=== PATIENT | male | born 1995 ===

== ENCOUNTER 2016-08-28 01:16 | Emergency (ER) | payer OTHER ==
[2016-08-28 04:19] VITALS: BP 138/91
--- NOTE | 2016-08-28 07:54 | RAD ---
INDICATION: Head injury. COMPARISON: There are no prior studies available for comparison. TECHNIQUE: Contiguous axial sections of the brain were obtained from the skull base to the vertex without contrast. FINDINGS: The ventricles, cisterns and sulci are within normal limits. No significant focal abnormality or mass effect is seen. There is no evidence for hemorrhage. No significant focal osseous abnormality is seen. The visualized portion of the paranasal sinuses and mastoid air cells appear clear. IMPRESSION: NO EVIDENCE FOR ACUTE INTRACRANIAL ABNORMALITY.
--- NOTE | 2016-08-28 07:58 | RAD ---
HISTORY: Fall, shoulder pain left COMPARISONS: None VIEWS: 2, frontal and frontal oblique views of the left clavicle FINDINGS: BONE DENSITY: Normal. BONES: There is a somewhat displaced and angulated fracture of the mid third of the clavicle. JOINTS: There is no arthropathy. ALIGNMENT: There is no dislocation. SOFT TISSUES: Unremarkable. OTHER FINDINGS: None. IMPRESSION: LEFT CLAVICLE FRACTURE
--- NOTE | 2016-08-28 08:00 | RAD ---
INDICATION: Trauma. COMPARISON: There are no prior studies available for comparison. TECHNIQUE: Contiguous axial sections were obtained from the skull base through the T2 vertebra. Images were reconstructed in the sagittal and coronal planes. FINDINGS: There is straightening and mild reversal of the cervical spine with loss of the normal cervical lordosis. No prevertebral soft tissue swelling or fracture is seen. There is no evidence for spinal canal narrowing. Disc spaces appear maintained. IMPRESSION: STRAIGHTENING AND REVERSAL OF THE NORMAL CERVICAL LORDOSIS, NO EVIDENCE FOR FRACTURE OR SUBLUXATION.
--- NOTE | 2016-09-02 14:50 | ED ---
Beatris Licona Janilya, scribed for Maryann Gaines MD on 08/28/16 at 0159 . Adult Trauma - HPI Summary HPI Summary: A 21 y/o male came in to [facility] presenting w/ a fall that happened today at 2230. Per triage note, severity rated 4/10. According to pt, he fell down half of flight of stairs and landed on his back. Pt denies LOC. He is concerned about having a broken clavicle bone. Pt had 3-4 shots and several cans of beers. Pt previously had a broken clavicle senior year of high school. - History of Current Complaint Chief Complaint: EDTraumaMultiple Stated Complaint: FALL//POSS COLLAR BONE BREAK LEFT SIDE Hx Obtained From: Patient Mechanism of Injury: Fall Loss of Consciousness: no loss of consciousness Onset/Duration: Started Hours Ago, Traumatic, Still Present Onset of Pain: Hours Onset Severity: Moderate Current Severity: Moderate Pain Intensity: 4 Pain Scale Used: 0-10 Numeric Location: Head, Chest - clavicle Character: Sharp Aggravating Factor(s): Nothing Alleviating Factor(s): Nothing Associated Signs & Symptoms: Positive: Negative - Allergy/Home Medications Allergies/Adverse Reactions: Allergies Allergy/AdvReac Type Severity Reaction Status Date / Time kiwi Allergy Swelling Uncoded 08/28/16 01:28 PMH/Surg Hx/FS Hx/Imm Hx Previously Healthy: Yes Endocrine/Hematology History: Denies: Hx Blood Disorders - Surgical History Surgery Procedure, Year, and Place: no surg hx Infectious Disease History: No Infectious Disease History: Denies: Traveled Outside the [place] in Last 30 Days - Family History Known Family History: Positive: Hypertension - father Family History: NON CONTRIBUTORY - Social History Occupation: Student Alcohol Use: None Substance Use Type: Reports: None Smoking Status (MU): Never Smoked Tobacco Review of Systems Negative: Fever Negative: Chest Pain Negative: Shortness Of Breath Positive: Arthralgia - left clavicle tenderness, Myalgia - left clavicle tenderness All Other Systems Reviewed And Are Negative: Yes Physical Exam Triage Information Reviewed: Yes Vital Signs On Initial Exam: Initial Vitals Temp Pulse Resp BP Pulse Ox 99.3 F 80 20 138/89 100 08/28/16 01:26 08/28/16 01:26 08/28/16 01:26 08/28/16 01:08/28/16 01:26 Vital Signs Reviewed: Yes Appearance: Positive: Well-Appearing, Well-Nourished, Pain Distress Skin: Positive: Warm, Skin Color Reflects Adequate Perfusion, Dry Head/Face: Positive: Normal Head/Face Inspection Eyes: Positive: EOMI, Conjunctiva Clear ENT: Positive: Normal ENT inspection, Hearing grossly normal, Pharynx normal, TMs normal. Negative: Muffled/hoarse voice Neck: Positive: Supple, Nontender Respiratory/Lung Sounds: Positive: Clear to Auscultation, Breath Sounds Present Cardiovascular: Positive: RRR, Pulses are Symmetrical in both Upper and Lower Extremities. Negative: Murmur Abdomen Description: Positive: Nontender, Soft Bowel Sounds: Positive: Present Musculoskeletal: Positive: Strength/ROM Intact, Other - swelling and deformity of left clavicle. Negative: Edema Left, Edema Right Neurological: Positive: Sensory/Motor Intact, Alert, Oriented to Person Place, Time. Negative: Facial Droop, Focal Deficit @, Slurred Speech Psychiatric: Positive: Affect/Mood Appropriate Diagnostics - Vital Signs Vital Signs Temp Pulse Resp BP Pulse Ox 08/28/16 01:26 99.3 F 80 20 138/89 100 - Laboratory Lab Statement: Any lab studies that have been ordered have been reviewed, and results considered in the medical decision making process. - Radiology clavicle xray Xray Interpretation: Positive (See Comments) - Fracture in midshaft left clavicle Radiology Interpretation Completed By: ED Physician - Dr. Gaines - CT cervical spine CT Interpretation: No Acute Changes - Mild generalized reversal of the cervical lordosis, likely due to muscle spasm. Normal alignment. No acute cervical spine fracture or dislocation. Mild fibrotic changes in lung apices. CT Interpretation Completed By: Radiologist brain CT Interpretation: No Acute Changes - The brain parenchyma demonstrates normal attenuation without focal mass or mass effect. The ventricles are not enlarged. No acute intracranial hemorrhage or acute infarction. The visualized aspect of the paranasal sinuses and mastoid air cells are unremarkable. No acute fracture. CT Interpretation Completed By: Radiologist Re-Evaluation - Re-Evaluation First Eval Re-Evaluation Time: 04:30 Change: Improved - discussed xray results and discharge instructions. Pt agreeable to DC. Adult Trauma Course/Dx - Diagnoses Provider Diagnoses: Clavicle fracture, Fall (on) (from) other stairs and steps, initial encounter, Head injury due to trauma Discharge - Discharge Plan Condition: Stable Disposition: HOME Patient Education Materials: Clavicle Fracture (ED) Referrals: Stephan Dsouza MD [Medical Doctor] - 1 Week [facility] ELIZABETH Andrew [Primary Care Provider] - 2 Days Additional Instructions: Keep the sling in place until you are seen by orthopedics. Please follow up with your primary care provider and return to the ER for any worsening symptoms. The documentation as recorded by the Beatris pratt Janilya accurately reflects the service I personally performed and the decisions made by , Maryann Gaines MD.
== END 2016-08-28 05:05 | disposition home or self-care (01) ==
LOC: ED 01:16
DX: S42.002A Fracture of unspecified part of left clavicle, initial encounter for closed fracture (principal); S09.90XA Unspecified injury of head, initial encounter; W10.9XXA Fall (on) (from) unspecified stairs and steps, initial encounter; Y93.9 Activity, unspecified; Y92.9 Unspecified place or not applicable; Y99.9 Unspecified external cause status
CPT/HCPCS: 70450; 72125; 99282